=== PATIENT | female | born 1970 | race Caucasian/White ===

== ENCOUNTER → 2018-09-24 | Outpatient (CLI) | payer OTHER | LOC: RAD 14:04 | DX: Z12.31 Encounter for screening mammogram for malignant neoplasm of breast (principal) ==

== ENCOUNTER → 2018-10-01 | Outpatient (CLI) | payer OTHER | LOC: RAD 01:08 | DX: R92.1 Mammographic calcification found on diagnostic imaging of breast (principal); R92.0 Mammographic microcalcification found on diagnostic imaging of breast ==

== ENCOUNTER → 2020-07-28 | Outpatient (CLI) | payer OTHER | LOC: BC 11:39 | PROVIDERS: ATTEND Neuromusculoskeletal Medicine & OMM | DX: Z12.31 Encounter for screening mammogram for malignant neoplasm of breast (principal) ==

== ENCOUNTER → 2021-09-22 | Outpatient (CLI) | payer OTHER | LOC: ULTRA 13:57 | PROVIDERS: ATTEND Nurse Practitioner | DX: E04.9 Nontoxic goiter, unspecified (principal) ==